=== PATIENT | female | born 1975 | race Caucasian/White ===

== ENCOUNTER 2017-03-06 05:36 | Inpatient (IN) | payer OTHER ==
[~2017-03-06] VITALS: Ht 175.3 cm; Wt 83.0 kg
[~2017-03-06 05:36] MED LIST: IBUP-1222 PO; LABE100T3 PO; LABE200T3 PO; NIFE60TA2 PO; NIFE90TA PO; OXYC-302 PO
[2017-03-06] MEDS ORDERED: SODIUM CITRATE/CITRIC ACID 30 ML UDC ONE (06:00)
[2017-03-06] MEDS ORDERED: NEWBORN KIT ONE (06:00)
[2017-03-06] MEDS ORDERED: METOCLOPRAMIDE 5 MG/ML, 2ML ONE (06:01)
[2017-03-06] MEDS ORDERED: MISOPROSTOL 200 MCG TABLET ONE ×2 (06:03→08:52)
[2017-03-06] MEDS ORDERED: LACTATED RINGERS 1,000 ML IV SCH ×3 (06:03→08:44)
[2017-03-06] MEDS ORDERED: OXYTOCIN 30U/ 0.9% NaCL 500ML 500 ML ONE ×2 (06:03→15:37)
[2017-03-06] MEDS ORDERED: OXYTOCIN 30U/ 0.9% NaCL 500ML 500 ML IV SCH (06:03)
[2017-03-06] MEDS ORDERED: LIDOCAINE 1%, 20ML ONE ×2 (06:03→08:52)
[2017-03-06] MEDS ORDERED: FENTANYL PF 100 MCG/2ML ONE (06:03)
[2017-03-06] MEDS ORDERED: FENTANYL PF 100 MCG/2ML IVPush PRN (06:30)
[2017-03-06] MEDS ORDERED: LACTATED RINGERS 1,000 ML IVBOLUS ONE (06:30)
[2017-03-06] MEDS ORDERED: LIDOCAINE/PF 1.5%-EPI 1:200K, 30ML ONE (07:17)
[2017-03-06] MEDS ORDERED: FENTANYL/BUPIV./NS/PF 250 ML EPIDCONT ONE ×2 (07:17→07:23)
[2017-03-06] MEDS ORDERED: BUPIVACAINE/PF 0.25% ONE (07:17)
[2017-03-06] MEDS ORDERED: CARB200C3 PO (07:28)
[2017-03-06] MEDS ORDERED: [UNRECOGNIZED DRUG - CODE] PO (07:28)
[2017-03-06] MEDS ORDERED: PREN1TAB60 PO (07:58)
[2017-03-06] MEDS ORDERED: FENTANYL/BUPIV./NS/PF 250 ML EPIDCONT SCH (08:44)
[2017-03-06] MEDS ORDERED: LACTATED RINGERS 1,000 ML IVBOLUS PRN (09:00)
[2017-03-06] MEDS: OXYTOCIN 30U/ 0.9% NaCL 500ML 500 ML IV SCH ×9 (13:56→23:56)
[2017-03-06] MEDS ORDERED: ONDANSETRON 2MG/ML, 2ML IV PRN (14:00)
[2017-03-06] MEDS ORDERED: MISOPROSTOL 200 MCG TABLET PR PRN (14:00)
[2017-03-06] MEDS ORDERED: CEFAZOLIN PMX 2GM/50ML 50 ML IVPB ONE (14:00)
[2017-03-06] MEDS ORDERED: ACETAMINOPHEN 325 MG TABLET PO PRN ×2 (14:00)
[2017-03-06] MEDS ORDERED: HYDROcodone/APAP 5/325 TABLET PO PRN ×2 (14:00)
[2017-03-06] MEDS ORDERED: CALCIUM CARBONATE 500 MG TAB.CHEW PO PRN (14:00)
[2017-03-06 16:00] VITALS: BP 117/63
[2017-03-06] MEDS: IBUPROFEN 600 MG TABLET PO PRN ×2 (16:31→22:30)
[2017-03-06 19:45] VITALS: BP 109/63
[2017-03-06] MEDS: CARBAMAZEPINE XR 200 MG TABLET PO SCH ×2 (21:00→22:00)
[2017-03-06 22:15] LABS: DIFF TOTAL CELLS COUNTED 100 CELL DIFF
[2017-03-06 22:18] LABS: VERIFY COUNTS? YES
[2017-03-06 22:19] LABS: ANISOCYTOSIS 1+
[2017-03-06] MEDS ORDERED: RHOGAM FROM BLOOD BANK 1 NOTE EA IM/IV ONE (22:30)
[2017-03-06] MEDS: DOCUSATE 100 MG CAPSULE PO PRN (22:30)
[2017-03-07 00:30] VITALS: BP 116/63
[2017-03-07 04:40] VITALS: BP 104/57
[2017-03-07] MEDS: IBUPROFEN 600 MG TABLET PO PRN ×2 (04:52→11:22)
[2017-03-07] MEDS: DOCUSATE 100 MG CAPSULE PO PRN (08:18)
[2017-03-07 08:47] VITALS: BP 102/62
[2017-03-07] MEDS ORDERED: CARBAMAZEPINE XR 200 MG TABLET PO SCH (09:00)
[2017-03-07] MEDS ORDERED: PRENATAL VIT/IRON/FA 1 EACH TABLET PO SCH (09:00)
[2017-03-07 12:10] VITALS: BP 119/64
[2017-03-07] MEDS ORDERED: IBUP-1222 PO (12:52)
[2017-03-07] MEDS ORDERED: DOCU-30 PO (12:53)
== END 2017-03-07 16:20 | disposition home or self-care (01) | DRG 775 ==
LOC: LDOP 05:36 → LDIP 06:00 → 2NW 16:02
PROVIDERS: ADMIT Obstetrics & Gynecology; ATTEND Obstetrics & Gynecology
PROC: 10E0XZZ Delivery of Products of Conception, External Approach (ICD-10-PCS; principal; 2017-03-06)
PROC: 0KQM0ZZ Repair Perineum Muscle, Open Approach (ICD-10-PCS; 2017-03-06)
PROC: 0UQMXZZ Repair Vulva, External Approach (ICD-10-PCS; 2017-03-06)
PROC: 10907ZC Drainage of Amniotic Fluid, Therapeutic from Products of Conception, Via Natural or Artificial Opening (ICD-10-PCS; 2017-03-06)
PROC: 3E0R3CZ (ICD-10-PCS; 2017-03-06)
PROC: 00HU33Z Insertion of Infusion Device into Spinal Canal, Percutaneous Approach (ICD-10-PCS; 2017-03-06)
PROC: 3E0334Z Introduction of Serum, Toxoid and Vaccine into Peripheral Vein, Percutaneous Approach (ICD-10-PCS; 2017-03-06)
DX: O34.219 Maternal care for unspecified type scar from previous cesarean delivery (principal); O99.354 Diseases of the nervous system complicating childbirth; Z37.0 Single live birth; G40.409 Other generalized epilepsy and epileptic syndromes, not intractable, without status epilepticus; O69.3XX0 Labor and delivery complicated by short cord, not applicable or unspecified; O26.893 Other specified pregnancy related conditions, third trimester; Z67.41 Type O blood, Rh negative; Z3A.37 37 weeks gestation of pregnancy; O70.1 Second degree perineal laceration during delivery; O71.82 Other specified trauma to perineum and vulva; Z80.1 Family history of malignant neoplasm of trachea, bronchus and lung
CPT/HCPCS: 36415; 85025; 85461; 86850; 86900; J0690; J2790; J3010; J2590; J7120

== ENCOUNTER 2017-09-16 17:05 | Emergency (ER) | payer OTHER ==
[~2017-09-16] VITALS: Ht 175.3 cm; Wt 67.0 kg
[~2017-09-16 17:05] MED LIST changes: +CARB200C3 PO; +DOCU-131 PO; +PREN1TAB60 PO; +[UNRECOGNIZED DRUG - CODE] PO
[2017-09-16 17:19] VITALS: BP 115/76
[2017-09-16 17:58] LABS: CULTURE INDICATED? YES; MICROSCOPIC AUTO
[2017-09-16 17:59] LABS: BASOPHILS # (AUTO) 0.02 x10^3/uL (0-0.1); BASOPHILS % (AUTO) 0 % (0-1); EOSINOPHILS # (AUTO) 0.08 x10^3/uL (0-0.4); EOSINOPHILS % (AUTO) 2 % (1-7); LYMPHOCYTES # (AUTO) 1.65 x10^3/uL (1-3.4); LYMPHOCYTES % (AUTO) 29 % (22-44); MD NO; MEAN CORPUSCULAR HEMOGLOBIN 32.7 pg (27.0-34.8); MEAN CORPUSCULAR HGB CONC 33.5 g/dL (32.4-35.8); MEAN CORPUSCULAR VOLUME 97.4 fL (80-100); MEAN PLATELET VOLUME 8.7 fL (7.4-10.4); MONOCYTES # (AUTO) 0.55 x10^3/uL (0.2-0.8); MONOCYTES % (AUTO) 10 % (2-9); NEUTROPHILS # (AUTO) 3.32 x10^3/uL (1.8-6.8); NEUTROPHILS % (AUTO) 59 % (42-75); PLATELET COUNT 173 x10^3/uL (130-400); RED BLOOD COUNT 4.42 x10^6/uL (3.82-5.3)
[2017-09-16 18:12] LABS: ALBUMIN 3.7 g/dL (3.4-5.0); ANION GAP 11 mmol/L (5-15); CALCIUM 7.8 mg/dL (8.5-10.1); CHLORIDE 110 mmol/L (98-107)
[2017-09-16 18:30] LABS: ALANINE AMINOTRANSFERASE 19 U/L (12-78); ALKALINE PHOSPHATASE 100 U/L (45-117); BILIRUBIN,TOTAL 0.2 mg/dL (0.2-1.0); CREATININE 0.82 mg/dL (0.55-1.02)
[2017-09-16] MEDS ORDERED: RHOGAM FROM BLOOD BANK 1 NOTE EA IM/IV ONE (19:00)
[2017-09-16] MEDS ORDERED: BACITRACIN ZINC OINT 500U/GM, 0.9 GM ONE (19:03)
== END 2017-09-16 20:11 | disposition home or self-care (01) ==
LOC: ED 19:49
DX: O26.891 Other specified pregnancy related conditions, first trimester (principal); Z3A.01 Less than 8 weeks gestation of pregnancy
CPT/HCPCS: 36415; 36430; 76801; 80053; 81001; 84702; 84703; 85025; 86850; 86900; 87086; 99285; J2790